=== PATIENT | male | born 1945 | race Caucasian/White ===

== ENCOUNTER 2022-06-30 11:42 | Day surgery (SDC) | payer OTHER ==
[~2022-06-30] VITALS: Ht 177.8 cm; Wt 80.1 kg
[2022-06-30] MEDS ORDERED: TOPROL XL25 MG (12:17)
[2022-06-30] MEDS ORDERED: FML (12:18)
[2022-06-30 14:55] VITALS: BP 141/80
== END 2022-06-30 14:45 | disposition home or self-care (01) ==
LOC: ORSCSDS 11:42
PROVIDERS: Internal Medicine Gastroenterology
PROC: 0DBM8ZX Excision of Descending Colon, Via Natural or Artificial Opening Endoscopic, Diagnostic (ICD-10-PCS; principal; 2022-06-30 13:00)
PROC: 0DBE8ZX Excision of Large Intestine, Via Natural or Artificial Opening Endoscopic, Diagnostic (ICD-10-PCS; principal; 2022-06-30 13:00)
PROC: 0DBH8ZX Excision of Cecum, Via Natural or Artificial Opening Endoscopic, Diagnostic (ICD-10-PCS; principal; 2022-06-30 13:00)
DX: R19.4 Change in bowel habit (principal); D12.0 Benign neoplasm of cecum; D12.4 Benign neoplasm of descending colon; K57.30 Diverticulosis of large intestine without perforation or abscess without bleeding; I10 Essential (primary) hypertension; Z79.899 Other long term (current) drug therapy
CPT/HCPCS: 88305; J2704; J7120

== ENCOUNTER 2022-11-14 05:59 | Day surgery (SDC) | payer OTHER ==
[~2022-11-14] VITALS: Ht 177 cm; Wt 81.1 kg
[2022-11-14] VITALS (14 sets, daily range): BP systolic 130–156; BP diastolic 63–91
[~2022-11-14 05:59] MED LIST: FML; METO25ER PO
--- NOTE | 2022-11-14 07:14 | NUR ---
Ambulatory in Day Surgery History, Chart, Medications and Allergies reviewed before start of procedure.Patient confirms NPO status and agrees with scheduled surgery. Patient reports completing Chlorhexadine shower X2 prior to admission to hospital.Surgical site prepped with 2% Chlorhexidine cloth wipe. Patient States Post-Procedure ride home has been arranged.
--- NOTE | 2022-11-14 10:52 | NUR ---
SHIRA SELF UP IN BED WHEN ASKED TO. TELLS ME ABOUT WHAT HIS JOB WAS WHEN YOUNGER WHEN ASKED . TELLS ME WHERE HE CURRENTLY LIVES YET DOES CONTINUE TO TELL ME HE IS CONFUSED . A LITTLE DROWSY HEARING AIDS IN BILAT AT THIS TIME
--- NOTE | 2022-11-14 11:09 | NUR ---
PT TO DAY SURGERY STEP DOWN FROM PACU. REPORT RECEIVED FROM BRAN BOCANEGRA. PT HAS 3 INCISIONS FROM SURGERY THAT ARE C/D/I. THE MIDDLE INCISION IS MORE PINK THAN THE OTHER 2; SAHRA SAID IT HAS IMPROVED SINCE COMING FROM THE OR. PT STATES PAIN IS 1/10 AND REQUESTS PO FLUIDS. PT HAS LIGHT PINK THU ON LEFT SHOULDER AREA FROM EKG STICKER.
--- NOTE | 2022-11-14 11:25 | NUR ---
INCISION CITES REMAINED UNCHANGED. SITES SHOWN TO PT AND PT. PT TOLERATING PO FLUIDS WELL.
--- NOTE | 2022-11-14 11:37 | NUR ---
PT EATING CRACKERS AND TOLERATING WELL. NO CHANGE IN INCISIONS.
--- NOTE | 2022-11-14 11:53 | NUR ---
Patient up to Ambulate independently. Gait steady. Discharge instructions reviewed with patient. Patient verbalizes understanding. Copy given to patient to take home. Patient States Post-Procedure ride home has been arranged. Discharged via wheelchair to private car for ride home.
== END 2022-11-14 11:55 | disposition home or self-care (01) ==
LOC: ORSCMMR 05:59 → ORD 07:30 → ORSCMMR 07:30
PROVIDERS: Surgery
PROC: 8E0W4CZ Robotic Assisted Procedure of Trunk Region, Percutaneous Endoscopic Approach (ICD-10-PCS; principal; 2022-11-14 07:30)
PROC: 0WQF0ZZ Repair Abdominal Wall, Open Approach (ICD-10-PCS; principal; 2022-11-14 07:30)
PROC: 0YUA4JZ Supplement Bilateral Inguinal Region with Synthetic Substitute, Percutaneous Endoscopic Approach (ICD-10-PCS; principal; 2022-11-14 07:30)
DX: K40.00 Bilateral inguinal hernia, with obstruction, without gangrene, not specified as recurrent (principal); K42.9 Umbilical hernia without obstruction or gangrene; I10 Essential (primary) hypertension; Z79.899 Other long term (current) drug therapy
CPT/HCPCS: A9270; C1781; J0690; J1100; J1885; J2250; J2405; J2704; J3010; J7120